=== PATIENT | female | born 1970 | race Caucasian/White ===

== ENCOUNTER 2017-03-20 11:34 | Emergency (ER) | payer MEDICARE, BC ==
[~2017-03-20] VITALS: Ht 157.5 cm; Wt 64.2 kg
[~2017-03-20 11:34] MED LIST: BUPR75TA9 PO; CIPR500T4 PO; ESCI5TAB PO; HYDR-3498 PO; MIRT-30 PO; RISP2TAB93 PO; RSP.5T PO
[2017-03-20 11:36] VITALS: Ht 157.5 cm; Wt 64.2 kg
[2017-03-20] MEDS ORDERED: morphine 4 MG/ML VIAL IV STA (11:55)
[2017-03-20] MEDS ORDERED: SOD CHLORIDE 0.9% 1,000 ML IV STA (11:55)
[2017-03-20] MEDS ORDERED: ONDANSETRON 4 MG INJ IV STA (11:55)
[2017-03-20] MEDS ORDERED: ACETAMINOPHEN 500 MG TAB PO STA (11:57)
[2017-03-20 12:30] LABS: ABNORMAL IP MESSAGE 1; BASOPHILS % 0.1 % (0.0-2.0); EOSINOPHILS # 0.1 10^3/ul (0.0-0.5); EOSINOPHILS % 0.8 % (0.0-7.0); HEMATOCRIT 40.4 % (37.0-47.0); LYMPHOCYTES # 0.5 10^3/ul (0.8-2.9); MEAN CORPUSCULAR HEMOGLOBIN 29.2 pg (29.0-33.0); MEAN CORPUSCULAR HGB CONC 34.7 g/dl (32.0-37.0); MEAN CORPUSCULAR VOLUME 84.3 fl (82.0-101.0); MEAN PLATELET VOLUME 9.1 fl (7.4-10.4); MONOCYTE # 0.2 10^3/ul (0.3-0.9); MONOCYTES % 1.9 % (0.0-11.0); NEUTROPHIL # 11.2 10^3/ul (1.6-7.5); NEUTROPHILS % 92.9 % (39.0-77.0); PLATELET COUNT 230 10^3/UL (140-415); RED BLOOD COUNT 4.79 10^6/ul (4.20-5.40); RED CELL DISTRIBUTION WIDTH 11.9 % (11.5-14.5); WHITE BLOOD COUNT 12.1 10^3/ul (4.8-10.8)
[2017-03-20 12:32] LABS: POSITIVE DIFF @See below
[2017-03-20 12:35] LABS: ADD UMIC YES; UR ASCORBIC ACID NEGATIVE (NEGATIVE); UR BACTERIA FEW /HPF (NONE SEEN); UR BILIRUBIN (Dip) NEGATIVE (NEGATIVE); UR BLOOD (Dip) 2+ mg/dL (NEGATIVE); UR CLARITY CLEAR (CLEAR); UR COLOR STRAW (YELLOW); UR GLUCOSE (Dip) NEGATIVE (NEGATIVE); UR KETONES (Dip) NEGATIVE (NEGATIVE); UR LEUKOCYTE ESTERASE (Dip) NEGATIVE Leu/ul (NEGATIVE); UR NITRITE (Dip) NEGATIVE (NEGATIVE); UR RBC 4 /HPF (0-5); UR SPECIFIC GRAVITY (Dip) 1.004 (1.003-1.030); UR TOTAL PROTEIN (Dip) NEGATIVE (NEGATIVE); UR UROBILINOGEN (Dip) NEGATIVE (NEGATIVE)
[2017-03-20 12:50] LABS: ALBUMIN/GLOBULIN RATIO 1.08; BILIRUBIN,INDIRECT 0.9 mg/dl (0-1.1); BILIRUBIN,TOTAL 0.9 mg/dl (0.2-1.3); CALCIUM 9.2 mg/dl (8.4-10.2); CREATININE 0.54 mg/dl (0.44-1.00); POTASSIUM 3.7 mmol/L (3.5-5.1); TOTAL PROTEIN 7.7 g/dl (6.1-8.1)
--- NOTE | 2017-03-20 13:44 | RADRPT ---
PROCEDURE: CT Abdomen and Pelvis without contrast. CLINICAL INDICATION: Abdominal pain TECHNIQUE: CT scan of the abdomen and pelvis was performed on a multidetector high-resolution CT s canner without intravenous contrast. Coronal and sagittal reformatted images were obtained from the axial source images. Images were reviewed on a high-resolution PACS workstation. The total exam CTD I equals 10mGy and the total exam DLP equals 515mGy-cm. One or more of the following dose reduction techniques were used: Automated exposure control, Adjustment of the mA and/or kV according to patien t size, and/or use of iterative reconstruction technique. DICOM images are available. COMPARISON: Abdominal CT 07/08/2014 FINDINGS: Evaluation of the solid organs is limited given the lack of intravenous contrast administration. The lung bases are clear. Hypoattenuation of the liver. No pancreatic ductal dilatation. Spleen and adrenals are unremarkable. No focal pericholecystic inflammatory changes. No hydronephrosis. No renal or ureteral stone. Renal cysts are seen on prior contrast CT. No bowel obstruction. Normal-caliber appendix. No significant retroperitoneal lymphadenopathy, ascites or evidence of pneumoperitoneum. IMPRESSION: No acute intra-abdominal process identified. No renal or ureteral stone. No evidence of bowel obstruction or appendicitis. Hepatic steatosis. RPTAT: AA .Gabino Atkins MD, Date Time Electronically viewed and signed by .Gabino Atkins MD, MD on 03/20/2017 13:44 .T/
[2017-03-20] MEDS ORDERED: ACET325T33 PO (13:50)
[2017-03-20] MEDS ORDERED: ONDA4TAB14 PO (13:50)
[2017-03-20 14:16] VITALS: BP 106/62; PULSE 99; RESP 18; TEMP 99.9
--- NOTE | 2017-03-20 16:17 | ERD ---
ER Documentation Chief Complaint Chief Complaint AP N/V/D FEVER SINCE LAST NIGHT HPI 46-year-old female presenting to the emergency department with fever, generalized abdominal pain, nausea nonbilious nonbloody vomiting and nonbloody diarrhea since last night. Patient denies taking any medications for this. ROS All systems reviewed and are negative except as per history of present illness. Medications Home Meds Active Scripts Acetaminophen* (Tylenol*) 325 Mg Tablet, 2 TAB PO Q4 Y for PAIN AND OR ELEVATED TEMP, #30 TAB Prov:NESS FARFAN PA-C 03/20/17 Ondansetron (Ondansetron Odt) 4 Mg Tab.rapdis, 4 MG PO Q6H Y for NAUSEA AND/OR VOMITING, #20 TAB Prov:NESS FARFAN PA-C 03/20/17 Ciprofloxacin Hcl* (Ciprofloxacin Hcl*) 500 Mg Tablet, 500 MG PO BID for 3 Days , TAB Prov:ROSA,[facility] 03/13/15 Hydrocodone Bit-Acetaminophen* ([place]*) 5-325 Mg Tab, 1 TAB PO Q6 Y for PAIN, # 7 [facility] 03/13/15 Reported Medications Escitalopram Oxalate* (Lexapro*) 5 Mg Tablet, 5 MG PO DAILY, TAB 07/08/14 Risperidone* (Risperdal*) 2 Mg Tablet, 2 MG PO HS 08/09/12 Risperidone* (Risperdal*) 0.5 Mg Tablet, 0.5 MG PO HS 08/09/12 Mirtazapine* (Remeron*) 15 Mg Tab, 0.5 TAB PO HS 08/09/12 Bupropion Hcl (Wellbutrin) 75 Mg Tablet, 75 MG PO DAILY 08/09/12 Allergies Allergies: Coded Allergies: No Known Allergy (Unverified , 03/20/17) PMhx/Soc Medical and Surgical Hx: pt denies Surgical Hx History of Surgery: No Anesthesia Reaction: No Hx Neurological Disorder: No Hx Respiratory Disorders: No Hx Cardiac Disorders: No Hx Psychiatric Problems: Yes (depression, anxiety) Hx Miscellaneous Medical Probl: No Hx Alcohol Use: No Hx Substance Use: No Hx Tobacco Use: No Smoking Status: Never smoker Physical Exam Vitals Vital Signs Date Time Temp Pulse Resp B/P Pulse Ox O2 Delivery O2 Flow Rate FiO2 03/20/17 14:16 99.9 99 18 106/62 99 Room Air 03/20/17 11:36 100.7 122 18 119/73 97 Physical Exam GENERAL: well-developed/well-nourished, in no apparent distress, non-toxic appearing HENT: NC/AT, moist mucous membranes EYES: Conjunctiva normal NECK: Supple, no lymphadenopathy PULM: CTA bilaterally, no rales, rhonchi, or wheezing heard CV: Normal S1S2, RRR, good capillary refill GI: Soft, non-distended, tender to palpation quadrant Normal bowel sounds, no masses or organomegaly felt on exam No gross peritonitis, no bruits Negative Rovsing, negative Martinez, negative McBurney's point, Negative CVAT BACK: No masses EXT: No clubbing, cyanosis, or edema NEURO: Alert and Orientated SKIN: Intact, normal turgor PSYCH: Normal mood and mentation Result Diagram: 03/20/17 1215 03/20/17 1215 Results 24 hrs Laboratory Tests Test 03/20/17 12:15 White Blood Count 12.110^3/ul Red Blood Count 4.7910^6/ul Hemoglobin 14.0g/dl Hematocrit 40.4% Mean Corpuscular Volume 84.3fl Mean Corpuscular Hemoglobin 29.2pg Mean Corpuscular Hemoglobin Concent 34.7g/dl Red Cell Distribution Width 11.9% Platelet Count 87954^3/UL Mean Platelet Volume 9.1fl Neutrophils % 92.9% Lymphocytes % 4.0% Monocytes % 1.9% Eosinophils % 0.8% Basophils % 0.1% Nucleated Red Blood Cells % 0.0/100WBC Neutrophils # 11.210^3/ul Lymphocytes # 0.510^3/ul Monocytes # 0.210^3/ul Eosinophils # 0.110^3/ul Basophils # 0.010^3/ul Nucleated Red Blood Cells # 0.010^3/ul Urine Color STRAW Urine Clarity CLEAR Urine pH 7.0 Urine Specific [place] 1.004 Urine Ketones NEGATIVEmg/dL Urine Nitrite NEGATIVEmg/dL Urine Bilirubin NEGATIVEmg/dL Urine Urobilinogen NEGATIVEmg/dL Urine Leukocyte Esterase NEGATIVELeu/ul Urine Microscopic RBC 4/HPF Urine Microscopic WBC 0/HPF Urine Bacteria FEW/HPF Urine Hemoglobin 2+mg/dL Urine Glucose NEGATIVEmg/dL Urine Total Protein NEGATIVEmg/dl Sodium Level 141mmol/L Potassium Level 3.7mmol/L Chloride Level 103mmol/L Carbon Dioxide Level 28mmol/L Anion Gap 14 Blood Urea Nitrogen 11mg/dl Creatinine 0.54mg/dl Glucose Level 140mg/dl Calcium Level 9.2mg/dl Total Bilirubin 0.9mg/dl Direct Bilirubin 0.00mg/dl Indirect Bilirubin 0.9mg/dl Aspartate Amino Transf (AST/SGOT) 41IU/L Alanine Aminotransferase (ALT/SGPT) 42IU/L Alkaline Phosphatase 79IU/L Total Protein 7.7g/dl Albumin 4.0g/dl Globulin 3.70g/dl Albumin/Globulin Ratio 1.08 Lipase 46U/L Current Medications Medications (Trade) Dose Ordered Sig/Varun Route PRN Reason Start Time Stop Time Status Last Admin Dose Admin Sodium Chloride (NS) 1,000 ml @ 1,000 mls/hr Q1H STAT IV 03/20/17 11:55 03/20/17 12:54 DC 03/20/17 12:24 Morphine Sulfate (morphine) 4 mg ONCE STAT IV 03/20/17 11:55 03/20/17 11:56 DC 03/20/17 12:24 Ondansetron HCl (Zofran Inj) 4 mg ONCE STAT IV 03/20/17 11:55 03/20/17 11:56 DC 03/20/17 12:23 Acetaminophen (Tylenol Tab) 1,000 mg ONCE STAT PO 03/20/17 11:57 03/20/17 11:58 DC 03/20/17 12:23 Procedures/MDM Is a 46-year-old female presenting to the emergency department with generalized abdominal pain, fever, vomiting diarrhea since last night likely due to viral syndrome. There was no evidence of acute abdomen, and CT abdomen and pelvis without contrast was done and did not show any evidence of acute pathology. Patient did have hepatic steatosis. There was no significant leukocytosis, CMP was unremarkable. In the ED patient was given morphine, Zofran and fluids, she is stable to be discharged home to follow-up with primary care physician Departure Diagnosis: Primary Impression: Abdominal pain Additional Impression: Fever Condition: Stable Patient Instructions: Abdominal Pain, Diet, Vomiting Or Diarrhea [6Yr-Adult], Fever Control (Adult), Vomiting And Diarrhea, Nonspecific (Adult) NESS FARFAN PA-C Mar 20, 2017 16:17
[2017-03-21] MEDS ORDERED: HYDR-902 PO (08:35)
[2017-03-21] MEDS ORDERED: ONDA4TAB14 PO (08:35)
== END 2017-03-20 14:21 | disposition home or self-care (01) ==
LOC: FTE 11:34
DX: R10.84 Generalized abdominal pain (principal); R50.9 Fever, unspecified
CPT/HCPCS: 36415; 74176; 80053; 81001; 83690; 85025; 96374; 96375; 99285; J2270; J2405; J7030

== ENCOUNTER 2017-03-21 04:21 | Emergency (ER) | payer MEDICARE, BC ==
[~2017-03-21] VITALS: Ht 152.4 cm; Wt 65.2 kg
[~2017-03-21 04:21] MED LIST changes: +ACET325T33 PO; +ONDA4TAB14 PO
[2017-03-21 04:25] VITALS: Ht 152.4 cm; Wt 65.2 kg
--- NOTE | 2017-03-21 06:16 | RADRPT ---
PROCEDURE: CHEST - 1 VIEW CLINICAL INDICATION: 46-year-old female with shortness of breath and sepsis. TECHNIQUE: A single frontal AP portable view of the chest was performed. The images were reviewed on a PACS workstation. COMPARISON: CT abdomen/pelvis March 20, 2017. FINDINGS: The cardiomediastinal silhouette has a normal appearance. There is no evidence for an infiltrate. There is no evidence for congestive heart failure. There is no evidence for pneumothorax. The osseou s structures are intact. IMPRESSION: No evidence for active cardiopulmonary disease. .Niall Barksdale MD, Date Time Electronically viewed and signed by .Niall Barksdale MD, on 03/21/2017 06:16 .Juvenal/
[2017-03-21] MEDS ORDERED: SODIUM CHLORIDE 0.9% 1L BAG IV* STA (06:20)
[2017-03-21] MEDS ORDERED: CEFTRIAXONE 1 GM/50 ML (PMX) 50 ML IVPB STA (06:20)
[2017-03-21] MEDS ORDERED: ONDANSETRON 4 MG INJ IV STA (06:22)
[2017-03-21] MEDS ORDERED: morphine 4 MG/ML VIAL IV STA (06:22)
[2017-03-21 06:28] LABS: BASOPHILS % 0.1 % (0.0-2.0); EOSINOPHILS # 0.2 10^3/ul (0.0-0.5); EOSINOPHILS % 2.1 % (0.0-7.0); HEMATOCRIT 34.4 % (37.0-47.0); HEMOGLOBIN 11.8 g/dl (12.0-16.0); LYMPHOCYTES # 0.9 10^3/ul (0.8-2.9); LYMPHOCYTES % 11.6 % (15.0-51.0); MEAN CORPUSCULAR HEMOGLOBIN 29.4 pg (29.0-33.0); MEAN CORPUSCULAR HGB CONC 34.3 g/dl (32.0-37.0); MEAN CORPUSCULAR VOLUME 85.6 fl (82.0-101.0); MEAN PLATELET VOLUME 9.6 fl (7.4-10.4); MONOCYTE # 0.4 10^3/ul (0.3-0.9); MONOCYTES % 5.4 % (0.0-11.0); NEUTROPHIL # 6.4 10^3/ul (1.6-7.5); NEUTROPHILS % 80.5 % (39.0-77.0); PLATELET COUNT 205 10^3/UL (140-415); RED BLOOD COUNT 4.02 10^6/ul (4.20-5.40); RED CELL DISTRIBUTION WIDTH 12.1 % (11.5-14.5); WHITE BLOOD COUNT 7.9 10^3/ul (4.8-10.8)
[2017-03-21] MEDS ORDERED: ACETAMINOPHEN 325 MG TAB PO ONE (06:30)
[2017-03-21 07:40] LABS: ADD UMIC YES; UR ASCORBIC ACID NEGATIVE (NEGATIVE); UR BILIRUBIN (Dip) NEGATIVE (NEGATIVE); UR BLOOD (Dip) 2+ mg/dL (NEGATIVE); UR CLARITY CLEAR (CLEAR); UR COLOR COLORLESS (YELLOW); UR GLUCOSE (Dip) NEGATIVE (NEGATIVE); UR KETONES (Dip) NEGATIVE (NEGATIVE); UR LEUKOCYTE ESTERASE (Dip) NEGATIVE Leu/ul (NEGATIVE); UR NITRITE (Dip) NEGATIVE (NEGATIVE); UR RBC 2 /HPF (0-5); UR SPECIFIC GRAVITY (Dip) 1.001 (1.003-1.030); UR TOTAL PROTEIN (Dip) NEGATIVE (NEGATIVE); UR UROBILINOGEN (Dip) NEGATIVE (NEGATIVE)
[2017-03-21 07:59] LABS: ALANINE AMINOTRANSFERASE 46 IU/L (13-69); ALBUMIN 3.6 g/dl (3.3-4.9); ALBUMIN/GLOBULIN RATIO 1.16; ALKALINE PHOSPHATASE 65 IU/L (42-121); ANION GAP 14 (8-16); ASPARTATE AMINO TRANSFERASE 47 IU/L (15-46); BILIRUBIN,INDIRECT 0.4 mg/dl (0-1.1); BILIRUBIN,TOTAL 0.4 mg/dl (0.2-1.3); BLOOD UREA NITROGEN 5 mg/dl (7-20); CALCIUM 7.9 mg/dl (8.4-10.2); CARBON DIOXIDE 24 mmol/L (21-31); CHLORIDE 106 mmol/L (97-110); GLUCOSE 114 mg/dl (70-220); POTASSIUM 3.2 mmol/L (3.5-5.1); SODIUM 141 mmol/L (135-144); TOTAL PROTEIN 6.7 g/dl (6.1-8.1)
[2017-03-21 08:11] LABS: TROPONIN-I < 0.012 ng/ml (0.00-0.12)
[2017-03-21] MEDS ORDERED: POTASSIUM CHLORIDE (SR) 20 MEQ TAB PO STA (08:20)
[2017-03-21] MEDS ORDERED: ONDA4TAB14 PO (08:35)
[2017-03-21] MEDS ORDERED: HYDR-902 PO (08:35)
--- NOTE | 2017-03-21 08:37 | ERD ---
ER Documentation Chief Complaint Chief Complaint AP, back pain and diarrhea for 2 days HPI Patient is a 46-year-old female with abdominal pain and UTI who presents with abdominal pain. The patient has had decreased intake by mouth for the past 2 days. She has vomiting and diarrhea which is nonbloody and nonbilious. She has left lower quadrant abdominal pain with cramping. She has midepigastric pain. She was seen yesterday and had laboratory studies and a CT scan done of the abdomen and pelvis. She said that she has had no cough. Upon review of old medical records this is the patient's 12 visit to the ER since 2011. ROS All systems reviewed and are negative except as per history of present illness. Medications Home Meds Active Scripts Ondansetron (Ondansetron Odt) 4 Mg Tab.rapdis, 4 MG PO Q6H Y for NAUSEA AND/OR VOMITING, #10 TAB Prov:ROMAN LESTER MD 03/21/17 Hydrocodone/Acetaminophen ([place] 10-325 Tablet) 1 Each Tablet, 1 TAB PO Q6H Y for PAIN, #7 TAB Prov:ROMAN LESTER MD 03/21/17 Acetaminophen* (Tylenol*) 325 Mg Tablet, 2 TAB PO Q4 Y for PAIN AND OR ELEVATED TEMP, #30 TAB Prov:NESS FARFAN PA-C 03/20/17 Ondansetron (Ondansetron Odt) 4 Mg Tab.rapdis, 4 MG PO Q6H Y for NAUSEA AND/OR VOMITING, #20 TAB Prov:NESS FARFAN PA-C 03/20/17 Ciprofloxacin Hcl* (Ciprofloxacin Hcl*) 500 Mg Tablet, 500 MG PO BID for 3 Days , TAB Prov:KANCHAN LEE DO 03/13/15 Hydrocodone Bit-Acetaminophen* ([place]*) 5-325 Mg Tab, 1 TAB PO Q6 Y for PAIN, # 7 TAB Prov:KANCHAN LEE DO 03/13/15 Reported Medications Escitalopram Oxalate* (Lexapro*) 5 Mg Tablet, 5 MG PO DAILY, TAB 07/08/14 Risperidone* (Risperdal*) 2 Mg Tablet, 2 MG PO HS 08/09/12 Risperidone* (Risperdal*) 0.5 Mg Tablet, 0.5 MG PO HS 08/09/12 Mirtazapine* (Remeron*) 15 Mg Tab, 0.5 TAB PO HS 08/09/12 Bupropion Hcl (Wellbutrin) 75 Mg Tablet, 75 MG PO DAILY 08/09/12 Allergies Allergies: Coded Allergies: No Known Allergy (Unverified , 03/21/17) PMhx/Soc Medical and Surgical Hx: pt denies Medical Hx History of Surgery: Yes (Bladder surgery ? year; Tubal ligation ? year) Anesthesia Reaction: No Hx Neurological Disorder: No Hx Respiratory Disorders: No Hx Cardiac Disorders: No Hx Psychiatric Problems: Yes (depression, anxiety) Hx Miscellaneous Medical Probl: No Hx Alcohol Use: No Hx Substance Use: No Hx Tobacco Use: No Smoking Status: Never smoker FmHx Family History: diabetes Physical Exam Vitals Vital Signs Date Time Temp Pulse Resp B/P Pulse Ox O2 Delivery O2 Flow Rate FiO2 03/21/17 06:00 99.6 113 17 114/80 98 Room Air 03/21/17 05:05 99.3 117 21 105/69 98 Room Air 03/21/17 04:25 101.0 124 20 115/69 97 Physical Exam Const: Moderate distress secondary to pain Head: Atraumatic Eyes: Normal Conjunctiva ENT: Normal External Ears, Nose and Mouth. Neck: Full range of motion..~ No meningismus. Resp: Clear to auscultation bilaterally Cardio: Regular rate and rhythm, no murmurs Abd: Soft, left lower quadrant tenderness to palpation without rebound or guarding Skin: No petechiae or rashes Back: No midline or flank tenderness Ext: No cyanosis, or edema Neur: Awake and alert Psych: Normal Mood and Affect Result Diagram: 03/21/17 0603/21/17 0600 Results 24 hrs Laboratory Tests Test 03/21/17 06:00 03/21/17 06:15 03/21/17 07:58 03/21/17 08:00 White Blood Count 7.910^3/ul Red Blood Count 4.0210^6/ul Hemoglobin 11.8g/dl Hematocrit 34.4% Mean Corpuscular Volume 85.6fl Mean Corpuscular Hemoglobin 29.4pg Mean Corpuscular Hemoglobin Concent 34.3g/dl Red Cell Distribution Width 12.1% Platelet Count 77116^3/UL Mean Platelet Volume 9.6fl Neutrophils % 80.5% Lymphocytes % 11.6% Monocytes % 5.4% Eosinophils % 2.1% Basophils % 0.1% Nucleated Red Blood Cells % 0.0/100WBC Neutrophils # 6.410^3/ul Lymphocytes # 0.910^3/ul Monocytes # 0.410^3/ul Eosinophils # 0.210^3/ul Basophils # 0.010^3/ul Nucleated Red Blood Cells # 0.010^3/ul Sodium Level 141mmol/L Potassium Level 3.2mmol/L Chloride Level 106mmol/L Carbon Dioxide Level 24mmol/L Anion Gap 14 Blood Urea Nitrogen 5mg/dl Creatinine 0.50mg/dl Glucose Level 114mg/dl Lactic Acid Level 1.1mmol/L 0.6mmol/L Calcium Level 7.9mg/dl Total Bilirubin 0.4mg/dl Direct Bilirubin 0.00mg/dl Indirect Bilirubin 0.4mg/dl Aspartate Amino Transf (AST/SGOT) 47IU/L Alanine Aminotransferase (ALT/SGPT) 46IU/L Alkaline Phosphatase 65IU/L Troponin I < 0.012ng/ml Total Protein 6.7g/dl Albumin 3.6g/dl Globulin 3.10g/dl Albumin/Globulin Ratio 1.16 Lipase 29U/L Urine Color COLORLESS Urine Clarity CLEAR Urine pH 7.0 Urine Specific [place] 1.001 Urine Ketones NEGATIVEmg/dL Urine Nitrite NEGATIVEmg/dL Urine Bilirubin NEGATIVEmg/dL Urine Urobilinogen NEGATIVEmg/dL Urine Leukocyte Esterase NEGATIVELeu/ul Urine Microscopic RBC 2/HPF Urine Microscopic WBC 0/HPF Urine Hemoglobin 2+mg/dL Urine Glucose NEGATIVEmg/dL Urine Total Protein NEGATIVEmg/dl Prothrombin Time 14.7Sec Prothrombin Time Ratio 1.1 INR International Normalized Ratio 1.15 Activated Partial Thromboplast Time 30.8Sec Current Medications Medications (Trade) Dose Ordered Sig/Varun Route PRN Reason Start Time Stop Time Status Last Admin Dose Admin Sodium Chloride 2020 ml 2,020 ml BOLUS OVER 2 HOURS STAT IV* 03/21/17 06:20 03/21/17 06:21 DC 03/21/17 07:06 Ceftriaxone Sodium (Rocephin) 50 ml @ 100 mls/hr ONCE STAT IVPB 03/21/17 06:20 03/21/17 06:49 DC 03/21/17 07:07 Acetaminophen (Tylenol Tab) 650 mg ONCE ONCE PO 03/21/17 06:30 03/21/17 06:31 DC 03/21/17 07:07 Morphine Sulfate (morphine) 4 mg ONCE STAT IV 03/21/17 06:22 03/21/17 06:23 DC 03/21/17 07:07 Ondansetron HCl (Zofran Inj) 4 mg ONCE STAT IV 03/21/17 06:22 03/21/17 06:23 DC 03/21/17 07:07 Potassium Chloride (Klor-Con 20) 40 meq ONCE STAT PO 03/21/17 08:20 03/21/17 08:32 DC Procedures/MDM EKG read by me: Rate/Rhythm: Sinus tachycardia at a rate of 112 Intervals: Normal Impression: Sinus tachycardia without ischemia CT abdomen pelvis reviewed from yesterday shows no surgical process per radiology. Patient is a 46-year-old female presents with abdominal pain. She had fever and tachycardia in the ER. She was given Tylenol, fluids, and 1 dose of ceftriaxone empirically. Her laboratory studies however are basically normal and her CT scan from yesterday shows no surgical process. At this point I doubt sepsis or other serious bacterial infection. I believe the patient likely has a viral illness. The patient will be discharged home with a prescription for [place] and Zofran for systematic relief. The patient will need to follow-up with her primary doctor within 24 hours for reevaluation. Departure Diagnosis: Primary Impression: Viral illness Additional Impressions: Fever Fever type: unspecified Qualified Code: R50.9 - Fever, unspecified fever cause Abdominal pain Abdominal location: left lower quadrant Qualified Code: R10.32 - Left lower quadrant pain Condition: Fair Patient Instructions: Abdominal Pain, Viral Syndrome (Adult) Referrals: Your doctor Additional Instructions: FOLLOW UP WITH YOUR PRIMARY CARE PHYSICIAN TOMORROW.Return to this facility if you are not improving as expected. ROMAN LESTER MD Mar 21, 2017 08:37
[2017-03-21 08:42] LABS: INR 1.15; PROTIME 14.7 Sec (12.2-14.2); PT RATIO 1.1
[2017-03-21 08:43] LABS: PARTIAL THROMBOPLASTIN TIME 30.8 Sec (25.0-35.0)
[2017-03-21 10:00] VITALS: BP 103/62; PULSE 83; RESP 16; TEMP 98.6
== END 2017-03-21 10:10 | disposition home or self-care (01) ==
LOC: E/R 04:21
DX: B34.9 Viral infection, unspecified (principal)
CPT/HCPCS: 36415; 71010; 80053; 81001; 83605; 83690; 84484; 85025; 85610; 85730; 87040; 87045; 87086; 93005; 96374; 96375; 99285; J0696; J2270; J2405; J7030

== ENCOUNTER 2017-03-25 19:51 | Emergency (ER) | payer MEDICARE, BC ==
[~2017-03-25] VITALS: Ht 154.9 cm; Wt 64.4 kg
[~2017-03-25 19:51] MED LIST changes: +HYDR-902 PO
[2017-03-25 20:07] VITALS: Ht 154.9 cm; Wt 64.4 kg
[2017-03-25] MEDS ORDERED: CLINDAMYCIN 600 MG/D5W (PMX) 50 ML IVPB SCH (21:00)
[2017-03-25] MEDS ORDERED: ACETAMINOPHEN 325 MG TAB PO ONE (23:00)
[2017-03-25] MEDS ORDERED: PIPER-TAZO 3.375 GM IV (PMX) 50 ML IV ONE (23:00)
[2017-03-25] MEDS ORDERED: CLIN-73 PO (23:57)
--- NOTE | 2017-03-26 00:05 | ERD ---
ER Documentation Chief Complaint Chief Complaint Told to return for (+) blood cultures by Dr. Lester. HPI This is a 46-year-old female presents to the ER after being called back to the ER for positive blood cultures. Over the last 2 days patient has had abdominal pain, nausea vomiting and diarrhea. Patient states that she is been feeling significantly better, and did not notice a fever at home. Patient denies any cough or cold symptoms. Her abdominal pain has improved. She no longer has vomiting area. Denies any urinary frequency or dysuria. She denies any chest pain shortness of breath or palpitations. Denies any IV drug use, she denies any valve replacements. ROS All systems reviewed and are negative except as per history of present illness. Medications Home Meds Active Scripts Clindamycin Hcl* (Clindamycin Hcl*) 300 Mg Capsule, 300 MG PO TID for 10 Days, CAP Prov:PRESTON SALMON 03/25/17 Ondansetron (Ondansetron Odt) 4 Mg Tab.rapdis, 4 MG PO Q6H Y for NAUSEA AND/OR VOMITING, #10 TAB Prov:ROMAN LESTER MD 03/21/17 Hydrocodone/Acetaminophen ([place] 10-325 Tablet) 1 Each Tablet, 1 TAB PO Q6H Y for PAIN, #7 TAB Prov:ROMAN LESTER MD 03/21/17 Acetaminophen* (Tylenol*) 325 Mg Tablet, 2 TAB PO Q4 Y for PAIN AND OR ELEVATED TEMP, #30 TAB Prov:NESS FARFAN PA-C 03/20/17 Ondansetron (Ondansetron Odt) 4 Mg Tab.rapdis, 4 MG PO Q6H Y for NAUSEA AND/OR VOMITING, #20 TAB Prov:NESS FARFAN PA-C 03/20/17 Ciprofloxacin Hcl* (Ciprofloxacin Hcl*) 500 Mg Tablet, 500 MG PO BID for 3 Days , TAB Prov:KANCHAN LEE DO 03/13/15 Hydrocodone Bit-Acetaminophen* ([place]*) 5-325 Mg Tab, 1 TAB PO Q6 Y for PAIN, # 7 TAB Prov:KANCHAN LEE DO 03/13/15 Reported Medications Escitalopram Oxalate* (Lexapro*) 5 Mg Tablet, 5 MG PO DAILY, TAB 3/18/15 Risperidone* (Risperdal*) 2 Mg Tablet, 2 MG PO HS 08/09/12 Risperidone* (Risperdal*) 0.5 Mg Tablet, 0.5 MG PO HS 08/09/12 Mirtazapine* (Remeron*) 15 Mg Tab, 0.5 TAB PO HS 08/09/12 Bupropion Hcl (Wellbutrin) 75 Mg Tablet, 75 MG PO DAILY 08/09/12 Allergies Allergies: Coded Allergies: No Known Allergy (Unverified , 03/21/17) PMhx/Soc History of Surgery: Yes (bladder sugery, tubal ligation) Anesthesia Reaction: No Hx Neurological Disorder: No Hx Respiratory Disorders: No Hx Cardiac Disorders: No Hx Psychiatric Problems: Yes (depression, anxiety) Hx Miscellaneous Medical Probl: No Hx Alcohol Use: No Hx Substance Use: No Hx Tobacco Use: No Smoking Status: Never smoker Physical Exam Vitals Vital Signs Date Time Temp Pulse Resp B/P Pulse Ox O2 Delivery O2 Flow Rate FiO2 03/25/17 20:07 99.1 80 18 124/78 98 Physical Exam GENERAL: The patient is well developed and appropriate for usual state of health , in no apparent distress. HEENT: Atraumatic. CHEST: Clear to auscultation bilaterally. There are no rales, wheezes or rhonchi. HEART: Regular rate and rhythm. No murmurs, clicks, rubs or gallops. ABDOMEN: Soft, nontender and nondistended. Good bowel sounds. No rebound or guarding. No gross peritonitis. No gross organomegaly or masses. No Martinez sign or McBurney point tenderness. BACK: No midline or flank tenderness. NEURO: Alert and oriented. Cranial nerves II through XII are intact. Motor strength in all 4 extremities with 5/5 strength. Sensation grossly intact. Normal speech and gait. SKIN: There is no apparent rash or petechia. The skin is warm and dry. Results 24 hrs Current Medications Medications (Trade) Dose Ordered Sig/Varun Route PRN Reason Start Time Stop Time Status Last Admin Dose Admin Clindamycin HCl/ Dextrose (Cleocin 600 Mg/ D5W (Pmx)) 50 ml @ 50 mls/hr ONCE IVPB 03/25/17 21:00 03/25/17 21:59 DC 03/25/17 21:13 Acetaminophen 650 mg 650 mg ONCE ONCE PO 03/25/17 23:00 03/25/17 23:01 DC 03/25/17 22:41 Piperacillin Sod/ Tazobactam Sod (Zosyn 3.375gm/ 50 ml (Pmx)) 50 ml @ 100 mls/hr ONCE ONCE IV 03/25/17 23:00 03/25/17 23:29 DC 03/25/17 22:52 Procedures/MDM I discussed his case with my supervising physician Dr. Green. She is nontoxic appearing, she is feeling much better and does not wish to stay in the hospital. Patient was given a dose of Zosyn and clindamycin in the ER. She will be sent home with clindamycin. Suspicion for sepsis, meningitis, endocarditis is low. Was told to return to ER in 48 hours for recheck, or 2 return to ER in 24 hours if fever returns. Patient is stable for outpatient follow-up, I discussed instructions with her 2 daughters, they understand and agree with plan. Departure Diagnosis: Primary Impression: Febrile illness Condition: Stable Patient Instructions: Blood Culture Additional Instructions: Regrese a estas instalaciones dentro de [facility] [place] para un examen de seguimiento.Regrese antes si alvarado condicin se empeora. PRESTON SALMON Mar 26, 2017 00:05
[2017-03-26 00:06] VITALS: BP 118/65; PULSE 87; RESP 18; TEMP 98.9
== END 2017-03-26 00:08 | disposition home or self-care (01) ==
LOC: FTE 19:51
DX: R50.9 Fever, unspecified (principal)
CPT/HCPCS: 96374; 96375; J2543

== ENCOUNTER 2017-03-28 10:24 | Emergency (ER) | payer MEDICARE, BC ==
[~2017-03-28] VITALS: Wt 64.2 kg
[~2017-03-28 10:24] MED LIST changes: +CLIN-73 PO
--- NOTE | 2017-03-28 13:11 | ERD ---
ER Documentation Chief Complaint Chief Complaint labwork? currently on antibx for "infection in blood" HPI This is a 46-year-old female presents to the ER for recheck. Patient was seen here 2 days ago was given IV antibiotics antibiotics to go home with has positive blood cultures came back as positive urine culture. Patient states she feels completely better, she has not had any fevers or chills. She denies any pain. She denies any urinary frequency or dysuria. She denies any chest pain or shortness of breath. She is taking her antibiotics as directed. ROS 12 point review of systems was done, all negative except per HPI. Medications Home Meds Active Scripts Clindamycin Hcl* (Clindamycin Hcl*) 300 Mg Capsule, 300 MG PO TID for 10 Days, CAP Prov:PRESTON SALMON 03/25/17 Ondansetron (Ondansetron Odt) 4 Mg Tab.rapdis, 4 MG PO Q6H Y for NAUSEA AND/OR VOMITING, #10 TAB Prov:ROMAN LESTER MD 03/21/17 Hydrocodone/Acetaminophen ([place] 10-325 Tablet) 1 Each Tablet, 1 TAB PO Q6H Y for PAIN, #7 TAB Prov:ROMAN LESTER MD 03/21/17 Acetaminophen* (Tylenol*) 325 Mg Tablet, 2 TAB PO Q4 Y for PAIN AND OR ELEVATED TEMP, #30 TAB Prov:NESS FARFAN PA-C 03/20/17 Ondansetron (Ondansetron Odt) 4 Mg Tab.rapdis, 4 MG PO Q6H Y for NAUSEA AND/OR VOMITING, #20 TAB Prov:NESS FARFAN PA-C 03/20/17 Ciprofloxacin Hcl* (Ciprofloxacin Hcl*) 500 Mg Tablet, 500 MG PO BID for 3 Days , TAB Prov:KANCHAN LEE DO 03/13/15 Hydrocodone Bit-Acetaminophen* ([place]*) 5-325 Mg Tab, 1 TAB PO Q6 Y for PAIN, # 7 TAB Prov:KANCHAN LEE DO 03/13/15 Reported Medications Escitalopram Oxalate* (Lexapro*) 5 Mg Tablet, 5 MG PO DAILY, TAB 07/08/14 Risperidone* (Risperdal*) 2 Mg Tablet, 2 MG PO HS 08/09/12 Risperidone* (Risperdal*) 0.5 Mg Tablet, 0.5 MG PO HS 08/09/12 Mirtazapine* (Remeron*) 15 Mg Tab, 0.5 TAB PO HS 08/09/12 Bupropion Hcl (Wellbutrin) 75 Mg Tablet, 75 MG PO DAILY 08/09/12 Allergies Allergies: Coded Allergies: No Known Allergy (Unverified , 03/28/17) PMhx/Soc History of Surgery: Yes (bladder sugery, tubal ligation) Anesthesia Reaction: No Hx Neurological Disorder: No Hx Respiratory Disorders: No Hx Cardiac Disorders: No Hx Psychiatric Problems: Yes (depression, anxiety) Hx Miscellaneous Medical Probl: No Hx Alcohol Use: No Hx Substance Use: No Hx Tobacco Use: No Physical Exam Vitals Vital Signs Date Time Temp Pulse Resp B/P Pulse Ox O2 Delivery O2 Flow Rate FiO2 03/28/17 11:07 98.1 75 20 102/59 97 Physical Exam GENERAL: The patient is well developed and appropriate for usual state of health , in no apparent distress. HEENT: Atraumatic CHEST: Clear to auscultation bilaterally. There are no rales, wheezes or rhonchi. HEART: Regular rate and rhythm. No murmurs, clicks, rubs or gallops. ABDOMEN: Soft, nontender and nondistended. BACK: No midline or flank tenderness. NEURO: Alert and oriented. Procedures/MDM This is a 46-year-old female presents here for recheck, she is completely asymptomatic has been afebrile and is being compliant with her medication. I discussed this case with my supervision of silvia Wei for outpatient follow-up she is advised to continue with her antibiotics and to finish them. My medical decision making was shared with the patient she understands and agrees with plan. Departure Diagnosis: Primary Impression: Follow up Condition: Stable Patient Instructions: Normal Exam, (Child) (Adult) Additional Instructions: Llame al doctor MAMAY y ashlie jere KATARINA PARA DENTRO DE 1-2 SAUCEDA.Dgale a la secretaria que nosotros le instruimos hacer esta katarina.Avise o llame si alvarado condicin se empeora antes de la katarina. Regresa aqui si peor o no mejor. PRESTON SALMON Mar 28, 2017 13:11
== END 2017-03-28 13:39 | disposition home or self-care (01) ==
LOC: FTE 10:24
DX: Z00.00 Encounter for general adult medical examination without abnormal findings (principal)
CPT/HCPCS: 99282

== ENCOUNTER → 2017-07-06 | Outpatient (CLI) | END | disposition home or self-care (01) ==

== ENCOUNTER 2017-07-29 13:20 | Emergency (ER) | END 2017-07-29 15:59 | disposition home or self-care (01) ==

== ENCOUNTER → 2017-08-14 | Outpatient (CLI) | END | disposition home or self-care (01) ==

== ENCOUNTER 2017-08-27 22:43 | Emergency (ER) | END 2017-08-28 06:00 | disposition home or self-care (01) ==

== ENCOUNTER 2018-02-01 21:43 | Emergency (ER) | END 2018-02-02 02:14 | disposition home or self-care (01) ==

== ENCOUNTER 2018-06-14 21:27 | Emergency (ER) | payer MEDICARE, BC ==
[~2018-06-14] VITALS: Wt 67.4 kg
[~2018-06-14 21:27] MED LIST changes: -CLIN-73 PO; +CLIN300C10 PO; +HYDR-3980 PO; -HYDR-902 PO; +IBUP-1542 PO; +IBUP800T48 PO; +NAPR-985 PO; +PHEN-537 PO
--- NOTE | 2018-06-15 04:40 | ERD ---
ER Documentation Chief Complaint Chief Complaint cough x 10 days HPI This is a 47-year-old female who presents emergency department with complaints of productive cough for almost 10 days. Stated that she went to her primary care physician and was prescribed with cough medicine. Patient stated that her symptoms getting worse despite she came here to the emergency department. LMP: 06/07/2018. . Denies headache, head injury, loss of consciousness, dizziness, neck pain, neck stiffness, throat pain, difficulty swallowing, difficulty breathing lying flat, shoulder pain, chest pain, back pain, abdominal pain, nausea, vomiting, constipation, diarrhea, urinary symptoms, or possibility being , loss of bowel and bladder control, trauma, injury, falls, difficulty walking due to pain, numbness or tingling sensation, calf pain, recent travel, recent major surgery in the last 3 weeks, calf pain, recent long travel, recent exposure to any illness, recent antibiotic use in the last 3 months, fever, chills, seizures. ROS All systems reviewed and are negative except as per history of present illness. Medications Home Meds Active Scripts Albuterol Sulfate* (Proair HFA*) 8.5 Gm Hfa.aer.ad, 2 PUFF INH Q4 PRN for WHEEZING, #1 INHALER Prov:NATALIE BOWLING 06/15/18 Ibuprofen* (Motrin*) 600 Mg Tab, 600 MG PO Q6H PRN for PAIN AND OR ELEVATED TEMP, #30 TAB Prov:NATALIE BOWLING 06/15/18 Benzonatate* (Tessalon Perle*) 100 Mg Capsule, 100 MG PO Q8H PRN for COUGH, #15 CAP Prov:PASILANATALIE COE 06/15/18 Prednisone* (Prednisone*) 20 Mg Tab, 40 MG PO DAILY for 5 Days, TAB Prov:NATALIE BOWLING 06/15/18 Amoxicillin/Potassium Clav (Amox-Clav 875-125 mg Tablet) 875-125 mg Tab, 1 TAB P O BID for 10 Days, #20 TAB Prov:NATALIE BOWLING 06/15/18 Azithromycin* (Zithromax*) 250 Mg Tablet, 250 MG PO .ZPACK DIRECTED, #6 TAB TAKE 500 MG (2 TABS) THE FIRST DAY THEN 250 MG (1 TAB) DAYS 2-5 Prov:PASNATALIE SAHU 06/15/18 Naproxen* (Naprosyn*) 500 Mg Tablet, 500 MG PO BID PRN for PAIN AND/OR INFLAMMATION, #30 TAB Prov:DELORES,LUIZA 02/02/18 Ibuprofen* (Motrin*) 800 Mg Tab, 800 MG PO Q6, #30 TAB Prov:DELORES,LUIZA 08/28/17 Ibuprofen* (Motrin*) 600 Mg Tab, 600 MG PO Q6, #30 TAB Prov:PRESTON SALMON 07/29/17 Phenazopyridine Hcl* (Pyridium*) 100 Mg Tab, 100 MG PO TID PRN for URINARY PAIN, #9 TAB Prov:PRESTON SALMON 07/29/17 Clindamycin Hcl* (Clindamycin Hcl*) 300 Mg Capsule, 300 MG PO TID for 10 Days, CAP Prov:PRESTON SALMON 03/25/17 Ondansetron (Ondansetron Odt) 4 Mg Tab.rapdis, 4 MG PO Q6H PRN for NAUSEA AND/OR VOMITING, #10 TAB Prov:ROMAN LESTER MD 03/21/17 Hydrocodone/Acetaminophen ([place] 10-325 Tablet) 1 Each Tablet, 1 TAB PO Q6H PRN for PAIN, #7 TAB Prov:ROMAN LESTER MD 03/21/17 Acetaminophen* (Tylenol*) 325 Mg Tablet, 2 TAB PO Q4 PRN for PAIN AND OR ELEVATED TEMP, #30 TAB Prov:NESS FARFAN PA-C 03/20/17 Ondansetron (Ondansetron Odt) 4 Mg Tab.rapdis, 4 MG PO Q6H PRN for NAUSEA AND/OR VOMITING, #20 TAB Prov:NESS FARFAN PA-C 03/20/17 Ciprofloxacin Hcl* (Ciprofloxacin Hcl*) 500 Mg Tablet, 500 MG PO BID for 3 Days, TAB Prov:KANCHAN LEE DO 03/13/15 Hydrocodone Bit-Acetaminophen* ([place]*) 5-325 Mg Tab, 1 TAB PO Q6 PRN for PAIN, #7 TAB Prov:KANCHAN LEE DO 03/13/15 Reported Medications Escitalopram Oxalate* (Lexapro*) 5 Mg Tablet, 5 MG PO DAILY, TAB 07/08/14 Risperidone* (Risperdal*) 2 Mg Tablet, 2 MG PO HS 08/09/12 Risperidone* (Risperdal*) 0.5 Mg Tablet, 0.5 MG PO HS 08/09/12 Mirtazapine* (Remeron*) 15 Mg Tab, 0.5 TAB PO HS 08/09/12 Bupropion Hcl (Wellbutrin) 75 Mg Tablet, 75 MG PO DAILY 08/09/12 Discontinued Scripts Albuterol Sulfate* (Proair HFA*) 8.5 Gm Hfa.aer.ad, 2 PUFF INH Q4 PRN for WHEEZING, #1 INHALER Prov:NATALIE BOWLING F 06/15/18 Albuterol Sulfate* (Proair HFA*) 8.5 Gm Hfa.aer.ad, 2 PUFF INH Q4 PRN for WHEEZING, #1 INHALER Prov:NATALIE BOWLING F 06/15/18 Allergies Allergies: Coded Allergies: No Known Allergy (Unverified , 03/28/17) PMhx/Soc History of Surgery: Yes (BLADDER, X1, RIGHT EYE) Anesthesia Reaction: No Hx Neurological Disorder: No Hx Respiratory Disorders: No Hx Cardiac Disorders: No Hx Psychiatric Problems: No Hx Miscellaneous Medical Probl: Yes (ANXIETY, INSOMNIA, MIGRAINE, CHOLES) Hx Alcohol Use: No Hx Substance Use: No Hx Tobacco Use: No Physical Exam Vitals Vital Signs Date Temp Pulse Resp B/P (MAP) Pulse Ox O2 O2 Flow FiO2 Time Delivery Rate 06/15/18 98.0 90 18 127/76 99 Room Air 04:58 (93) 06/14/18 99.2 96 18 135/63 98 21:54 (87) Physical Exam Const: No acute distress Head: Atraumatic Eyes: Normal Conjunctiva ENT: Normal External Ears, Nose and Mouth. Bilateral ears: TM is not erythematous. No bleeding. No discharge. No hearing loss. No mastoid tenderness. Nose: There is frontal and maxillary sinus tenderness to palpation. Throat: Uvula is in midline and nondisplaced. Tonsils are +1 bilaterally with redness but no exudates. Tolerating secretions. Patent airway. Speaks full and clear sentences. No tripoding. Neck: Full range of motion. No meningismus. No nuchal rigidity but no signs of meningeal irritation. Resp: Clear to auscultation bilaterally Cardio: Regular rate and rhythm, no murmurs Abd: Soft, non tender, non distended. Normal bowel sounds Skin: No petechiae or rashes Back: No midline or flank tenderness Ext: No cyanosis, or edema Neur: Awake and alert. No neurological deficits. Psych: Normal Mood and Affect Procedures/MDM Diagnostic tests: Clinical exam. Treatment: Not applicable. Re-evaluation: Not applicable. Differential diagnosis I have low suspicion for sepsis, meningitis, peritonsillar abscess, mastoiditis, bronchospasm. Final diagnosis: Sinusitis. Bronchitis. Early pneumonia. Prescription: Azithromycin. Augmentin. Tessalon Perles. Prednisone. Motrin. Follow-up with PCP in the next 24-48 hours. Come back here in the emergency department for any new symptoms or any worsening symptoms. All questions and concerns were answered. Patient and family members verbalized understanding and agreed with plan of care. Hemodynamically stable on discharge. Departure Diagnosis: Primary Impression: Cough Additional Impressions: Bronchitis Sinusitis Condition: Stable Additional Instructions: Follow-up with PCP in the next 24-48 hours. Come back here in the emergency department for any new symptoms or any worsening symptoms. NATALIE BOWLING Jun 15, 2018 04:40
[2018-06-15] MEDS ORDERED: AMOX1TAB10 PO (04:42)
[2018-06-15] MEDS ORDERED: AZIT250T PO (04:42)
[2018-06-15] MEDS ORDERED: PRED20TA PO (04:43)
[2018-06-15] MEDS ORDERED: BENZ-6 PO (04:43)
[2018-06-15] MEDS ORDERED: ALBU8.5H8 INH ×3 (04:44→04:47)
[2018-06-15] MEDS ORDERED: IBUP-1542 PO (04:44)
[2018-06-15 04:58] VITALS: BP 127/76; PULSE 90; RESP 18
== END 2018-06-15 04:59 | disposition home or self-care (01) ==
LOC: FTE 21:27
DX: J40 Bronchitis, not specified as acute or chronic (principal); J32.9 Chronic sinusitis, unspecified
CPT/HCPCS: 99283

== ENCOUNTER 2018-10-04 17:35 | Emergency (ER) | payer MEDICARE, BC ==
[~2018-10-04] VITALS: Ht 157.5 cm; Wt 62.3 kg
[~2018-10-04 17:35] MED LIST changes: +ALBU8.5H8 INH; +AMOX1TAB10 PO; +AZIT250T PO; +BENZ-6 PO; +PRED20TA PO
[2018-10-04 18:13] VITALS: Ht 157.5 cm; Wt 62.3 kg
[2018-10-04] MEDS ORDERED: ONDANSETRON 4 MG INJ IV STA (18:42)
[2018-10-04] MEDS ORDERED: BELLADONNA/PHENOBARBITAL TAB PO STA (18:50)
[2018-10-04] MEDS ORDERED: LIDOCAINE/MYLANTA 40 ML BTL PO STA (18:50)
[2018-10-04] MEDS ORDERED: FAMOTIDINE 20 MG INJ IV ONE (19:00)
--- NOTE | 2018-10-04 19:32 | ERD ---
ER Documentation Chief Complaint Chief Complaint PT REPORTS UPPER ABD PAIN X 3 WEEKS WITH DIZZINESS HPI This is a 48 yo female patient who presents to the ER with c/o epigastric pain x 3 weeks. States she needs to eat every 2 hours to control the pain, +nausea, no vomiting, no hematemesis. No fevers. Reports recent constipation relieved with laxative, denies melena. Hx of EGD 10 years ago with dx of "inflammation." Saw her PMD yesterday who scheduled EGD/colonoscopy. Taking omeperazole daily. ROS All systems reviewed and are negative except as per history of present illness. Medications Home Meds Active Scripts Omeprazole* (Omeprazole*) 20 Mg Capsule.dr, 20 MG PO BID for dyspepsia for 10 Days, #20 Prov:TOSHIA WHITING NP 10/04/18 Mag Hydrox/Al Hydrox/Simeth (Maalox Advanced Suspension) 355 Ml Oral.susp, 10 ML PO QID PRN for PAIN for 10 Days, #350 Prov:TOSHIA WHITING NP 10/04/18 Albuterol Sulfate* (Proair HFA*) 8.5 Gm Hfa.aer.ad, 2 PUFF INH Q4 PRN for WHEEZING, #1 INHALER Prov:NATALIE BOWLING 06/15/18 Ibuprofen* (Motrin*) 600 Mg Tab, 600 MG PO Q6H PRN for PAIN AND OR ELEVATED TEMP, #30 TAB Prov:NATALIE BOWLING 06/15/18 Benzonatate* (Tessalon Perle*) 100 Mg Capsule, 100 MG PO Q8H PRN for COUGH, #15 CAP Prov:NATALIE BOWLING 06/15/18 Prednisone* (Prednisone*) 20 Mg Tab, 40 MG PO DAILY for 5 Days, TAB Prov:NATALIE BOWLING 06/15/18 Amoxicillin/Potassium Clav (Amox-Clav 875-125 mg Tablet) 875-125 mg Tab, 1 TAB PO BID for 10 Days, #20 TAB Prov:NATALIE BOWLING 06/15/18 Azithromycin* (Zithromax*) 250 Mg Tablet, 250 MG PO .ZPACK DIRECTED, #6 TAB TAKE 500 MG (2 TABS) THE FIRST DAY THEN 250 MG (1 TAB) DAYS 2-5 Prov:NATALIE BOWLING 06/15/18 Naproxen* (Naprosyn*) 500 Mg Tablet, 500 MG PO BID PRN for PAIN AND/OR INFLAMMATION, #30 TAB Prov:DELORES,LUIZA 02/02/18 Ibuprofen* (Motrin*) 800 Mg Tab, 800 MG PO Q6, #30 TAB Prov:DELORES,LUIZA 08/28/17 Ibuprofen* (Motrin*) 600 Mg Tab, 600 MG PO Q6, #30 TAB Prov:PRESTON SALMON 07/29/17 Phenazopyridine Hcl* (Pyridium*) 100 Mg Tab, 100 MG PO TID PRN for URINARY PAIN, #9 TAB Prov:PRESTON SALOMN 07/29/17 Clindamycin Hcl* (Clindamycin Hcl*) 300 Mg Capsule, 300 MG PO TID for 10 Days, CAP Prov:PRESTON SALMON 03/25/17 Ondansetron (Ondansetron Odt) 4 Mg Tab.rapdis, 4 MG PO Q6H PRN for NAUSEA AND/OR VOMITING, #10 TAB Prov:ROMAN LESTER MD 03/21/17 Hydrocodone/Acetaminophen ([place] 10-325 Tablet) 1 Each Tablet, 1 TAB PO Q6H PRN for PAIN, #7 TAB Prov:ROMAN LESTER MD 03/21/17 Acetaminophen* (Tylenol*) 325 Mg Tablet, 2 TAB PO Q4 PRN for PAIN AND OR ELEVATED TEMP, #30 TAB Prov:NESS FARFAN PA-C 03/20/17 Ondansetron (Ondansetron Odt) 4 Mg Tab.rapdis, 4 MG PO Q6H PRN for NAUSEA AND/OR VOMITING, #20 TAB Prov:NESS FARFAN PA-C 03/20/17 Ciprofloxacin Hcl* (Ciprofloxacin Hcl*) 500 Mg Tablet, 500 MG PO BID for 3 Days, TAB Prov:KANCHAN LEE DO 03/13/15 Hydrocodone Bit-Acetaminophen* ([place]*) 5-325 Mg Tab, 1 TAB PO Q6 PRN for PAIN, #7 TAB Prov:KANCHAN LEE DO 03/13/15 Reported Medications Escitalopram Oxalate* (Lexapro*) 5 Mg Tablet, 5 MG PO DAILY, TAB 07/08/14 Risperidone* (Risperdal*) 2 Mg Tablet, 2 MG PO HS 08/09/12 Risperidone* (Risperdal*) 0.5 Mg Tablet, 0.5 MG PO HS 08/09/12 Mirtazapine* (Remeron*) 15 Mg Tab, 0.5 TAB PO HS 08/09/12 Bupropion Hcl (Wellbutrin) 75 Mg Tablet, 75 MG PO DAILY 08/09/12 Allergies Allergies: Coded Allergies: No Known Allergy (Unverified , 03/28/17) PMhx/Soc History of Surgery: Yes (BLADDER, X1, RIGHT EYE) Anesthesia Reaction: No Hx Neurological Disorder: No Hx Respiratory Disorders: No Hx Cardiac Disorders: No Hx Psychiatric Problems: No Hx Miscellaneous Medical Probl: Yes (ANXIETY, INSOMNIA, MIGRAINE, CHOLES) Hx Alcohol Use: No Hx Substance Use: No Hx Tobacco Use: No Smoking Status: Never smoker FmHx migraine JACOBS, depression Physical Exam Vitals Vital Signs Date Temp Pulse Resp B/P (MAP) Pulse Ox O2 O2 Flow FiO2 Time Delivery Rate 10/04/18 74 14 148/86 100 Room Air 18:30 (106) 10/04/18 98.2 67 16 136/75 98 18:13 (95) Physical Exam Const: No acute distress Head: Atraumatic Eyes: Normal Conjunctiva, PERRL ENT: Normal External Ears, Nose and Mouth. Pharynx pink, moist, no lesions or exudate Neck: Full range of motion. No meningismus. No lymphadenopathy Resp: Clear to auscultation bilaterally Cardio: Regular rate and rhythm, no murmurs Abd: Soft, tender @ epigastrium, non distended. Normal bowel sounds. No hepato or splenomegaly. Skin: No petechiae or rashes Back: No midline or flank tenderness Neur: Awake and alert Psych: Normal Mood and Affect Result Diagram: 10/04/188 10/04/18 1848 Results 24 hrs Laboratory Tests Test 10/04/18 18:48 White Blood Count 6.9 10^3/ul Red Blood Count 4.55 10^6/ul Hemoglobin 13.2 g/dl Hematocrit 38.3 % Mean Corpuscular Volume 84.2 fl Mean Corpuscular Hemoglobin 29.0 pg Mean Corpuscular Hemoglobin Concent 34.5 g/dl Red Cell Distribution Width 11.9 % Platelet Count 254 10^3/UL Mean Platelet Volume 9.2 fl Immature Granulocytes % 0.100 % Neutrophils % 57.5 % Lymphocytes % 32.4 % Monocytes % 6.8 % Eosinophils % 2.9 % Basophils % 0.3 % Nucleated Red Blood Cells % 0.0 /100WBC Immature Granulocytes # 0.010 10^3/ul Neutrophils # 4.0 10^3/ul Lymphocytes # 2.2 10^3/ul Monocytes # 0.5 10^3/ul Eosinophils # 0.2 10^3/ul Basophils # 0.0 10^3/ul Nucleated Red Blood Cells # 0.0 10^3/ul Urine Color COLORLESS Urine Clarity CLEAR Urine pH 6.0 Urine Specific [place] 1.003 Urine Ketones NEGATIVE mg/dL Urine Nitrite NEGATIVE mg/dL Urine Bilirubin NEGATIVE mg/dL Urine Urobilinogen NEGATIVE mg/dL Urine Leukocyte Esterase NEGATIVE [place]/ul Urine Microscopic RBC 4 /HPF Urine Microscopic WBC 0 /HPF Urine Hemoglobin 2+ mg/dL Urine Glucose NEGATIVE mg/dL Urine Total Protein NEGATIVE mg/dl Sodium Level 142 mmol/L Potassium Level 3.7 mmol/L Chloride Level 106 mmol/L Carbon Dioxide Level 26 mmol/L Anion Gap 10 Blood Urea Nitrogen 9 mg/dl Creatinine 0.66 mg/dl Est Glomerular Filtrat Rate mL/min > 60 mL/min Glucose Level 105 mg/dl Calcium Level 9.7 mg/dl Total Bilirubin 0.5 mg/dl Direct Bilirubin 0.00 mg/dl Indirect Bilirubin 0.5 mg/dl Aspartate Amino Transf (AST/SGOT) 29 IU/L Alanine Aminotransferase (ALT/SGPT) 30 IU/L Alkaline Phosphatase 79 IU/L Total Protein 8.0 g/dl Albumin 4.4 g/dl Globulin 3.60 g/dl Albumin/Globulin Ratio 1.22 Lipase 59 U/L Current Medications Medications Dose Sig/Varun Start Time Status Last (Trade) Ordered Route PRN Stop Time Admin Dose Reason Admin Ondansetron 4 mg ONCE STAT 10/04/18 DC 10/04/18 HCl (Zofran IV 18:42 19:15 Inj) 10/04/18 18:51 Famotidine 20 mg ONCE ONCE 10/04/18 DC 10/04/18 (Pepcid Iv) IV 19:00 19:15 10/04/18 19:01 40 ml ONCE STAT 10/04/18 DC 10/04/18 Miscellaneous PO 18:50 19:15 Medication 10/04/18 18:51 (Gi Cocktail (2)) [place]/ 2 tab ONCE STAT 10/04/18 DC 10/04/18 Phenobarbital PO 18:50 19:15 () 10/04/18 18:51 Procedures/MDM This is a 48 yo female patient who presents to the ER with c/o epigastric pain x 3 weeks. ED Course: Blood work obtained, no evidence for infection, anemia, dehydration, pancreatitis, electrolyte imbalance. Upon reevaluation patient states epigastric pain improved with GI cocktail. MDM: Patient reports plan for EGD that has been planned by her PMD. She reports history of gastritis and chronic use of omeprazole and describes her pain today as similar to pain in the past. Low suspicion for perforated ulcer as she is not vomiting and there is no hematemesis. Low suspicion for cardiac etiology as she denies CP or SOB, VSS. Discussed appropriate GERD diet including avoiding alcohol, spicy, fattening foods. Instructed patient on use of omeprazole and increasing dosing to BID. Instructed patient on s/sx of worsening of condition and reasons to return to ER. Departure Diagnosis: Primary Impression: Dyspepsia Condition: Stable TOSHIA WHITING NP Oct 04, 2018 19:32
[2018-10-04] MEDS ORDERED: OMEP20CA16 PO (19:46)
[2018-10-04] MEDS ORDERED: MAG355OR14 PO (19:46)
[2018-10-04 20:15] VITALS: BP 151/93; PULSE 66; RESP 14
== END 2018-10-04 20:30 | disposition home or self-care (01) ==
LOC: E/R 17:35
DX: R10.13 Epigastric pain (principal); R11.0 Nausea
CPT/HCPCS: 36415; 80053; 81001; 83690; 85025; 96374; 96375; 99284; J2405